=== PATIENT | female | born 1995 | race Caucasian/White ===

== ENCOUNTER 2018-04-17 17:33 | Emergency (ER) | payer OTHER ==
--- NOTE | 2018-04-17 17:50 | EDPHY ---
H & P Stated Complaint: Pos preg test home and MD, IUD removed, sent over Time Seen by Provider: 04/17/18 17:49 - Personal History LMP (Females 10-55): Current Tetanus/Diphtheria Vaccine: Unsure - Medical/Surgical History Hx Asthma: No Hx Chronic Respiratory Disease: No Hx Diabetes: No Hx Cardiac Disease: No Hx Renal Disease: No Hx Cirrhosis: No Hx Alcoholism: No Hx HIV/AIDS: No Hx Splenectomy or Spleen Trauma: No Other PMH: L hip Sx - Social History Smoking Status: Never smoked Constitutional: Initial Vital Signs Temperature (C) 36.7 C 04/17/18 17:37 Heart Rate 90 04/17/18 17:37 Respiratory Rate 18 04/17/18 17:37 Blood Pressure 120/83 H 04/17/18 17:37 O2 Sat (%) 99 04/17/18 17:37 O2 Delivery Mode Room Air Allergies/Adverse Reactions: No Known Allergies Allergy (Unverified 04/17/18 17:37) Medical Decision Making - Diagnostics Imaging Results: Imaging Impressions Obstetrics Ultrasound 04/17/18 17:52 Impression: 1. No definite intrauterine gestation is identified. 2. Continued clinical follow up, with correlation to the beta hCG. There are no definite findings to suggest ectopic . Results called and discussed with Joey Chaudhry M.D., on April 17, 2018 at 1922. Imaging: Discussed imaging studies w/ med care manager Radiologist ED Course/Re-evaluation: CHIEF COMPLAINT: , IUD removed, concern for ectopic HISTORY OF PRESENT ILLNESS: The patient is a 22 y/o female arriving with her friend for evaluation of a possible ectopic . She missed her last menstrual cycle and completed a home test and it was positive today. She saw her doctor who removed the IUD and wanted an US performed to rule out ectopic due to patient's increased risk for this, but did not have the ability to do an outpatient US today and patient was referred to the ED. Patient denies any symptoms including abdominal pain, syncope, lightheadedness, abnormal vaginal discharge, or urinary symptoms. She is typically healthy. REVIEW OF SYSTEMS: A comprehensive 10 system review of systems is otherwise negative aside from elements mentioned in the history of present illness and medical decision making. PHYSICAL EXAM: HR, BP, O2 Sat, RR. Temp noted General Appearance: Alert, well hydrated, appropriate, and non-toxic appearing. Head: Atraumatic without scalp tenderness or obvious injury Eyes: Pupils equal, round, reactive to light and accommodation, EOMI, no trauma , no injection. Nose: Atraumatic, no rhinorrhea, clear. Throat: Mucus membranes moist. Neck: Supple, nontender, no lymphadenopathy. Respiratory: No retractions, no distress, no wheezes, and no accessory muscle use. Lungs are clear to auscultation bilaterally. Cardiovascular: Regular rate and rhythm, no murmurs, rubs, or gallops. Good capillary refill all extremities. Gastrointestinal: Abdomen is soft, nontender, non-distended, no masses, no rebound, no guarding, no peritoneal signs. Musculoskeletal: Normal active ROM of all extremities, atraumatic. Neurological: Alert, appropriate, and interactive. Nonfocal. Skin: No rashes, good turgor, no nodules on palpation. Past medical history: Denies Past surgical history: Denies Family history: Noncontributory Social history: Friend at bedside. Nonsmoker. DIAGNOSTICS/PROCEDURES/CRITICAL CARE TIME: Pelvic US: negative, no IUP, no ectopic DIFFERENTIAL DIAGNOSIS: The differential diagnosis for the patient's symptoms included but was not limited to high risk , ectopic , ovarian cyst, pelvic inflammatory disease, ovarian torsion, urinary tract infection, cholecystitis, and appendicitis. MEDICAL DECISION MAKING: This is a healthy 22 y/o female who presents for a pelvic US to rule out ectopic in the setting of positive home test with IUD removal today. Exam is benign and she is hemodynamically stable. Pelvic US and quantitative BHCG ordered. BHCG is positive but low at 200. US is completely negative. Reassessed patient and discussed findings. She remains asymptomatic with a normal exam. Recommend OBGYN follow up within the week for repeat imaging and BHCG testing. Return precautions discussed. She is comfortable with this plan. 1935: Consulted with MAYURI Bustos. She will see patient in their office next week. - Data Points Laboratory Results: Laboratory Results 04/17/18 18:25 04/17/18 18:25 04/17/18 04/17/18 04/17/18 18:50 18:25 18:25 WBC RBC Hgb Hct MCV MCH MCHC RDW Plt Count MPV Neut % (Auto) Lymph % (Auto) [place] % (Auto) Eos % (Auto) Baso % (Auto) Nucleat RBC Rel Count Absolute Neuts (auto) Absolute Lymphs (auto) Absolute Monos (auto) Absolute Eos (auto) Absolute Basos (auto) Absolute Nucleated RBC Immature Gran % Immature Gran # Sodium 137 mEq/L mEq/L (135-145) Potassium 4.0 mEq/L mEq/L (3.5-5.2) Chloride 107 mEq/L mEq/L (97-110) Carbon Dioxide 20 mEq/l L mEq/l (22-31) Anion Gap 10 mEq/L mEq/L (6-14) BUN 11 mg/dL mg/dL (7-23) Creatinine 0.7 mg/dL mg/dL (0.6-1.0) Estimated GFR > 60 Glucose 88 mg/dL mg/dL (70-100) Calcium 9.7 mg/dL mg/dL (8.5-10.4) Beta HCG, Quant 204.59 mIU/mL H mIU/mL (0.00-4.83) Urine Color YELLOW Urine Appearance CLEAR Urine pH 5.0 (5.0-7.5) Ur Specific [place] 1.018 (1.002-1.030) Urine Protein NEGATIVE (NEGATIVE) Urine Ketones 1+ H (NEGATIVE) Urine Blood NEGATIVE (NEGATIVE) Urine Nitrate NEGATIVE (NEGATIVE) Urine Bilirubin NEGATIVE (NEGATIVE) Urine Urobilinogen NEGATIVE EU EU (0.2-1.0) Ur Leukocyte Esterase NEGATIVE (NEGATIVE) Urine Glucose NEGATIVE (NEGATIVE) Patient ABO/Rh O POSITIVE 04/17/18 18:25 WBC 9.66 10^3/uL H 10^3/uL (3.80-9.50) RBC 4.65 10^6/uL 10^6/uL (4.18-5.33) Hgb 14.5 g/dL g/dL (12.6-16.3) Hct 42.2 % % (38.0-47.0) MCV 90.8 fL fL (81.5-99.8) MCH 31.2 pg pg (27.9-34.1) MCHC 34.4 g/dL g/dL (32.4-36.7) RDW 12.0 % % (11.5-15.2) Plt Count 336 10^3/uL 10^3/uL (150-400) MPV 9.5 fL fL (8.7-11.7) Neut % (Auto) 64.1 % % (39.3-74.2) Lymph % (Auto) 29.1 % % (15.0-45.0) Gibson % (Auto) 4.7 % % (4.5-13.0) Eos % (Auto) 1.2 % % (0.6-7.6) Baso % (Auto) 0.7 % % (0.3-1.7) Nucleat RBC Rel Count 0.0 % % (0.0-0.2) Absolute Neuts (auto) 6.19 10^3/uL 10^3/uL (1.70-6.50) Absolute Lymphs (auto) 2.81 10^3/uL 10^3/uL (1.00-3.00) Absolute Monos (auto) 0.45 10^3/uL 10^3/uL (0.30-0.80) Absolute Eos (auto) 0.12 10^3/uL 10^3/uL (0.03-0.40) Absolute Basos (auto) 0.07 10^3/uL 10^3/uL (0.02-0.10) Absolute Nucleated RBC 0.00 10^3/uL 10^3/uL (0-0.01) Immature Gran % 0.2 % % (0.0-1.1) Immature Gran # 0.02 10^3/uL 10^3/uL (0.00-0.10) Sodium Potassium Chloride Carbon Dioxide Anion Gap BUN Creatinine Estimated GFR Glucose Calcium Beta HCG, Quant Urine Color Urine Appearance Urine pH Ur Specific [place] Urine Protein Urine Ketones Urine Blood Urine Nitrate Urine Bilirubin Urine Urobilinogen Ur Leukocyte Esterase Urine Glucose Patient ABO/Rh Medications Given: Discontinued Medications Sodium Chloride (Ns) 1,000 mls @ 0 mls/hr IV ONCE ONE; Wide Open PRN Reason: Protocol Stop: 04/17/18 17:52 Last Admin: 04/17/18 18:23 Dose: 1,000 mls Departure - Departure Disposition: Home, Routine, Self-Care Clinical Impression: Qualifiers: Weeks of gestation: less than 8 weeks Qualified Code(s): Z3A.01 - Less than 8 weeks gestation of Condition: Good Instructions: (ED) Additional Instructions: Follow up with Dr. Traylor [facility], within the next week for repeat US. Return to the ED for severe pain, fainting, significant vaginal bleeding, fever , or other worsening of condition. Referrals: Geeta Traylor MD [Medical Doctor] - As per Instructions Report Scribed for: Joey Chaudhry Report Scribed by: Linda Ayala Date of Report: 04/17/18 Time of Report: 17:50
[2018-04-17] MEDS ORDERED: NS 1,000 ML IV ONE (17:51)
[2018-04-17 18:36] LABS: PLATELET COUNT 336 10^3/uL (150-400)
[2018-04-17 19:43] VITALS: BP 128/74
== END 2018-04-17 19:46 | disposition home or self-care (01) ==
DX: Z34.91 Encounter for supervision of normal pregnancy, unspecified, first trimester (principal); E86.9 Volume depletion, unspecified; Z3A.01 Less than 8 weeks gestation of pregnancy